=== PATIENT | female | born 1980 | race Caucasian/White ===

== ENCOUNTER 2016-07-06 14:23 | Observation (INO) | payer MEDICAID ==
[~2016-07-06] VITALS: Ht 180.3 cm; Wt 61.4 kg
[~2016-07-06 14:23] MED LIST: ABILIFY10 MG PO; CARAFATE1 G PO; GABAPENTIN100 MG PO; PROTONIX40 MG PO; SINEQUAN50 MG PO; TOPAMAX50 MG PO; ULTRAM50 MG PO
[2016-07-06 15:36] LABS: BASOPHILS 0.2 % (0.0-2.0); EOSINOPHILS 1.5 % (0-7); HEMATOCRIT 34.3 % (36.0-48.0); HEMOGLOBIN 10.8 g/dL (12-16); IMMATURE GRANULOCYTES 0.3 % (0-5); LYMPHOCYTES 15.9 % (15-50); MCH 27.3 pg (26.0-34.0); MCHC 31.5 g/dL (31.0-37.0); MCV 86.6 fL (80.0-100.0); MEAN PLATELET VOLUME 8.8 fL (7.4-10.4); MONOCYTES 5.2 % (2-11); NEUTROPHILS 76.9 % (40-80); RBC 3.96 10x6/uL (4.00-5.40); RDW 16.2 % (11.5-14.5); WBC 14.4 10x3/uL (4.8-10.8)
[2016-07-06 15:37] LABS: PLATELET COUNT 431 10x3/uL (130-400)
[2016-07-06 15:43] LABS: UDS - AMPHET NEGATIVE QUAL (NEGATIVE); UDS - BARB NEGATIVE QUAL (NEGATIVE); UDS - BENZO NEGATIVE QUAL (NEGATIVE); UDS - COCAINE NEGATIVE QUAL (NEGATIVE); UDS - METH NEGATIVE QUAL (NEGATIVE); UDS - OPIATE NEGATIVE QUAL (NEGATIVE); UDS - PCP NEGATIVE QUAL (NEGATIVE); UDS - THC NEGATIVE QUAL (NEGATIVE)
[2016-07-06 15:48] LABS: HCG URINE NEGATIVE (NEGATIVE)
[2016-07-06 15:49] LABS: APPEARANCE CLEAR (CLEAR); COLOR YELLOW (YELLOW)
[2016-07-06 15:50] LABS: BILIRUBIN NEGATIVE (NEGATIVE); GLUCOSE NEGATIVE (NEGATIVE); KETONE NEGATIVE (NEGATIVE); LEUKOCYTE ESTERASE NEGATIVE (NEGATIVE); NITRITE NEGATIVE (NEGATIVE); PROTEIN 1+ mg/dL (NEGATIVE); UROBILINOGEN NORMAL (NORMAL)
[2016-07-06 15:51] LABS: BACTERIA FEW /hpf (NONE SEEN); EPITHELIAL CELLS 0-5 /hpf (0-5); MUCUS <1+ /lpf (NONE SEEN); RED CELLS - URINE OCC /hpf (0-5); WHITE CELLS - URINE 0-5 /hpf (0-5)
[2016-07-06 16:19] LABS: ALBUMIN 3.4 g/dL (3.4-5.0); ALKALINE PHOSPHATASE 64 U/L (46-116); ALT (SGPT) 23 U/L (10-68); BILIRUBIN - TOTAL 0.17 mg/dL (0.2-1.3); CALC OSMOLALITY 276 mosm/kg (275-300); CALCIUM 8.8 mg/dL (8.5-10.1); CARBON DIOXIDE 27.2 mmol/L (21.0-32.0); CHLORIDE - SERUM 102 mmol/L (98-107); CREATININE - SERUM 0.7 mg/dL (0.6-1.3); GLUCOSE 99 mg/dL (74-106); MAGNESIUM - SERUM 1.7 mg/dL (1.8-2.4); POTASSIUM - SERUM 3.9 mmol/L (3.5-5.1); PROTEIN - SERUM 6.6 g/dL (6.4-8.2); SODIUM 139 mmol/L (136-145); UREA NITROGEN 11 mg/dL (7-18); eGFR NON AFRICAN AMERICAN > 90 mL/min (90-120)
[2016-07-06 20:50] VITALS: BP 135/93
[2016-07-06 23:00] VITALS: BP 101/62
[2016-07-06 23:38] VITALS: BP 135/93; Ht 180.3 cm; Wt 61.4 kg
--- NOTE | 2016-07-07 04:58 | NUR ---
ASSESSED AT THE TIME PT WAS BROUGHT FROM THE ER. SHE IS ALERT AND ORIENTED, ABLE TO VERBALIZE NEEDS. DR RAMÍREZ CAME TO SEE HER AND MEDS WERE STARTED AT TIEM TIME. SHE WAS COMPLAINING ABOUT ITCHING A LOT AFTER RECEIVING MEDS IN THE ER. OM CALL MD GAVE US AN ORDER FOR BENADRYL BEFORE DR RAMÍREZ SHOWED UP. SHE HAS BEEN ABLE TO SLEEP WELL AFTER THAT. HER BOYFRIEND HAS REMAINED AT THE BEDSIDE ALL NIGHT. THE BED IS LOW, RAILS UP X'S 2 WITH THE CALL LIGHT AT HAND.
[2016-07-07 05:00] VITALS: BP 100/61
--- NOTE | 2016-07-07 08:00 | NUR ---
PT ASSESSMENT COMPLETE AWAKE AND ALERT ORINETD X 3 LUNGS CLEAR BILATERALLY NO ACUTE DISTRESS NTOED HAS NO SEIZURE ACTIVITY NOTED EEG AT THIS TIME PER ORDER.
[2016-07-07 08:38] VITALS: BP 109/67
--- NOTE | 2016-07-07 11:04 | NUR ---
Patient Name: SOPHIA MANSFIELD Admission Status: ER Accout number: [id number] Admission Date: 07-06-2016 : 1980 Admission Diagnosis: Attending: MELANIE Current LOS: 1 Anticipated DC Date: 07-09-2016 Planned Disposition: Home Primary Insurance: [place]ICA[place] Discharge Planning Comments: CM MET WITH PATIENT REGARDING D/C NEEDS AND PLANS. PATIENT STATED SHE LIVES WITH HER BOYFRIEND AND THERE ARE 2 STEPS W/RAILS TO ENTER THEIR HOME AND NO STAIRS INSIDE. PATIENT STATED SHE IS INDEPENDENT WITH HER CARE AND HAS NO DME AT HOME. PATIENTS PCP IS DR. RAMÍREZ AND PHARMACY IS [facility] ON [address] PATIENT REFUSED HOME HEALTH. CM WILL CONTINUE TO FOLLOW PATIENT WITH D/C NEEDS AND PLANS. PCP DR. ENGLISH COOPER ON [phone] YOLIS SPAULDING ([facility] [place]) [phone] Tool Repair Technician: Paris Ortega Is the patient Alert and Oriented? Yes 0 * How many steps to enter\exit or inside your home? 2 W/RAILS 0 * PCP DR. RAMÍREZ 0 * Pharmacy [facility] [address] 0 * Preadmission Environment Home with Family 0 * ADLs Independent 0 * Equipment None 0 * List name and contact numbers for known caregivers / representatives who currently or will assist patient after discharge: YOLIS SPAULDING ([facility] [place]) [phone] 0 * Community resources currently utilized None 0 * Additional services required to return to the preadmission environment? Yes 0 * Can the patient safely return to the preadmission environment? Yes 0 * Has this patient been hospitalized within the prior 30 days at any hospital? No 0 Grand Total: 0
[2016-07-07 12:43] VITALS: BP 120/85
[2016-07-07 16:13] VITALS: BP 121/67
--- NOTE | 2016-07-07 16:32 | NUR ---
PT HAS REQUESTED PAIN MED ORDER PER DR MEJIA TO GIVE 1000 MG TYLENOL PO Q 6 HRS NEEDED FOR PAIN.
--- NOTE | 2016-07-07 16:41 | HP ---
PATIENT: ARIANNA MANSFIELD MEDICAL RECORD: [id number] ACCOUNT: [id number] LOCATION:D.MS [id number] : [birth year] ADMISSION DATE: 07/06/16 HISTORY AND PHYSICAL EXAMINATION REASON FOR ADMISSION: Generalized seizures. HISTORY OF PRESENT ILLNESS: The patient is a 35-year-old 0 female with history of depression, who also suffers from migraine headaches. Today, she took a tramadol for headache at about 10:00 a.m. At 1:30, she was going out the door to go on a walk with her mother and her mother notes she began to act "silly". She then fell on the couch and had a grand mal seizure, tonic-clonic type. Her mother placed her on the floor and attended her until the seizure stopped at about 2 or 3 minutes. She called 911. By time they arrived there, Arianna was postictal and coming around. She denied any other new medications, though several medications have potential for seizure, Ultram seems to be the most likely source. She has no previous history of severe head injury, seizure, or family history of seizures in the past. PAST MEDICAL HISTORY: Migraine headaches, bipolar disorder, history of peptic ulcer disease with prepyloric ulcer requiring transfusion due to anti-inflammatory use for fibromyalgia, chronic pain. PAST SURGICAL HISTORY: She had a hernia repair remotely, had a facial repair from a dog bite remotely, cystoscopy and retrograde pyelography in 2013 for hematuria due to NSAIDs. ALLERGIES: PENICILLIN. FAMILY HISTORY: Father with hypertension and hyperlipidemia. Mother with asthma. Grandmother with breast and colon cancer. 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 She is a college graduate. She has a current boyfriend, is a nonsmoker and rare wine drinker. HOME MEDICATIONS: Tramadol 50 mg 1-2 q.6 hours for headache, Topamax 200 mg at bedtime, Abilify 10 mg a day, Carafate 1 g p.o. p.c. and h.s., Protonix 40 mg b.i.d., doxepin 50 mg p.o. at bedtime, she takes control pills and Lyrica 75 b.i.d. She has been out of Lyrica recently. REVIEW OF SYSTEMS: GENERAL: Had felt well until today. Denies fever. HEENT: No recent visual change, sinus congestion, sore throat, or change in her headache cycle. RESPIRATORY: No severe cough. CARDIAC: No chest pain or claudication. GASTROINTESTINAL: No nausea, vomiting, change in stools, or blood per rectum. GENITOURINARY: No dysuria or hematuria. GYNECOLOGICAL: No abnormal vaginal bleeding, menstrual periods are regular. MUSCULOSKELETAL: She has pain in her left forearm and right hip from her seizure today; otherwise, has no recent change. MUSCULOSKELETAL: Symptoms of fibromyalgia trigger points. ENDOCRINE: Denies polyuria, polydipsia, heat or cold intolerance. NEUROLOGIC: No prior history of head injury, seizure or stroke, although has history of migraine headaches. HISTORY AND PHYSICAL [id number] ARIANNA MANSFIELD PSYCHIATRIC: She said her memory has been well controlled currently. She has been holding down a job and has a stable relationship with her boyfriend. PHYSICAL EXAMINATION: VITAL SIGNS: Temperature is 98.4 Fahrenheit, pulse is 120 initially, now 100, respirations are 16, blood pressure initially 176/100, now 150/80, and sat 99 on room air. GENERAL: The patient is alert and oriented with good recall except she does not remember the seizure or immediate postictal state. HEENT: Normocephalic. Eyes are clear. Pupils are reactive. Oropharynx unremarkable. Scar in the right upper lip is noted from previous injury. NECK: No bruits or masses. CHEST: Clear. HEART: Regular rate without MGR. ABDOMEN: Soft. No organomegaly. EXTREMITIES: No CC&E. She has some bruising over her left forearm and right hip. NEUROLOGIC: Oriented times 3. Cranial nerves intact. Gait is normal. Memory is intact except for the seizure and postictal period. No tremors noted. Reflexes are 2+ symmetrically. LABORATORY DATA: Denies current depressed mood. CT of the brain was unremarkable. She has a white count of 14,000 with left shift; H&H is 10.8 and 34.3 respectively. Urinalysis with few bacteria. Urine drug screen was negative. Chemistry is unremarkable except for low magnesium of 1.7. ASSESSMENT: 1. Tonic-clonic seizure, possibly due to Ultram. 2. Bipolar depression, clinically stable on multiple meds. 3. History of migraine headaches. 4. Hypomagnesemia. 5. Remote history of peptic ulcer disease. PLAN: We will discontinue Ultram. She was loaded with Dilantin IV tonight and she is now itching diffusely and most likely due to allergy. We will switch her Topamax from 200 mg at bedtime to 100 mg b.i.d. We will consult with Dr. Mas if available. EEG will be obtained. TRANSINT:[id number] Voice Confirmation ID: [id number] DOCUMENT ID: [id number] NICOLA RAMÍREZ MD at 1641 CC: [id number] DICTATION DATE: 07/06/162224 [employer]ATE[employer]NERSHIP REPRESENTATIVE: 07/06/16 3661 ADM IN [facility] [address] [place] [address]
--- NOTE | 2016-07-07 18:36 | NUR ---
WITHOUT DISTRESS.CALL LIGHT IN REACH.
[2016-07-07 21:18] VITALS: BP 117/79
[2016-07-07 23:00] VITALS: BP 111/76
[2016-07-08 05:40] LABS: BASOPHILS 0.6 % (0.0-2.0); EOSINOPHILS 6.1 % (0-7); HEMATOCRIT 35.2 % (36.0-48.0); HEMOGLOBIN 10.9 g/dL (12-16); IMMATURE GRANULOCYTES 0.3 % (0-5); LYMPHOCYTES 37.5 % (15-50); MCH 27.7 pg (26.0-34.0); MEAN PLATELET VOLUME 8.9 fL (7.4-10.4); MONOCYTES 9.5 % (2-11); RBC 3.94 10x6/uL (4.00-5.40); RDW 16.4 % (11.5-14.5)
[2016-07-08 05:46] LABS: MCV 89.3 fL (80.0-100.0); PLATELET COUNT 344 10x3/uL (130-400)
[2016-07-08 05:51] LABS: CALC OSMOLALITY 278 mosm/kg (275-300); CALCIUM 8.4 mg/dL (8.5-10.1); CARBON DIOXIDE 23.6 mmol/L (21.0-32.0); CHLORIDE - SERUM 107 mmol/L (98-107); CREATININE - SERUM 0.8 mg/dL (0.6-1.3); GLUCOSE 99 mg/dL (74-106); MAGNESIUM - SERUM 1.9 mg/dL (1.8-2.4); POTASSIUM - SERUM 4.1 mmol/L (3.5-5.1); SODIUM 139 mmol/L (136-145); UREA NITROGEN 14 mg/dL (7-18); eGFR NON AFRICAN AMERICAN 86 mL/min (90-120)
[2016-07-08] MEDS ORDERED: Topamax PO (06:57)
[2016-07-08] MEDS ORDERED: TOPAMAX100 MG PO (07:06)
--- NOTE | 2016-07-08 07:15 | NUR ---
PATIENT IN BED WITH EYES CLOSED RESTING QUIETLY AT THIS TIME. NO COMPLAINTS OR SIGNS OF DISTRESS. CALL LIGHT WITHIN REACH.
--- NOTE | 2016-07-08 08:00 | NUR ---
PT ASSESSMENT COMPLETE NO ACUTE DISTRESS NTOED VOICES ALL NEEDS OT STAFF CALL LIGHT INREACH SIDE RAILS UP X 2 PT TO DISCHARGE TODAY
[2016-07-08 08:44] VITALS: BP 115/71
--- NOTE | 2016-07-08 09:23 | NUR ---
CM REASSESSMENT NOTE: CM MET WITH PATIENT REGARDING D/C TODAY. PATIENT STATED HER DAD WILL BE DRIVING HER HOME. PATIENT DENIED HOME HEALTH OR ANY OTHER NEEDS.
--- NOTE | 2016-07-08 11:24 | NUR ---
PT DISCHARGED AT THIS TIME PIV DISCONTINUED ALL DISCHARGE INSTRUCTIONS GIVEN AND UNDERSTANDING STATED.
--- NOTE | 2016-07-17 07:17 | EEG ---
PATIENT:SOPHIA MANSFIELD DATE OF SERVICE: 07/06/16 MEDICAL RECORD: [id number] DATE OF : [birth year] LOCATION:D.223 D.MS ADMISSION DATE: 07/06/16 REFERRING PHYSICIAN: INTERPRETING PHYSICIAN: KORIN GIBBONS MD DATE OF SERVICE: 07/07/2016 Electroencephalographic Report Referred as an inpatient by Dr. Anderson. ELECTROENCEPHALOGRAM NUMBER: [id number] DATE OF EXAMINATION: 07/07/2016 at 8:30 a.m. DATE OF : 1980 TECHNICAL DATA: This electroencephalographic recording consists of approximately 20 minutes of data collection utilizing the international 10/20 system of electrode placement and both referential and non-referential montages. Sixteen channels of electrocerebral recording are accompanied by a 17th channel dedicated to the electrocardiographic rhythm and 2 channels of electromyographic recording. Recording is performed in the awake and drowsy states utilizing activation by photic stimulation. ELECTROENCEPHALOGRAPHIC DATA: The awake state comprises approximately 50% of the recorded electrocerebral activity. Electromyographic artifact is prominent and rapid eye movements are seen. The posterior dominant background consists of a well-developed, symmetric, rhythmic, waxing and waning alpha activity of 8-9 Hz, which is suppressed by eye opening. The drowsy state comprises the remaining portion of the recorded electrocerebral activity. Electromyographic artifact is diminished and rapid eye movements are not seen. The posterior dominant background is relatively suppressed. Also seen is an intermittent irregular generalized and symmetric 2-3 Hz delta slowing, which occurs for periods of 1-2 seconds approximately once every 1-2 pages. No abnormal nor focal slowing is identified. No epileptiform discharges are seen. Photic stimulation induces no abnormal change in the recorded electrocerebral activity. INTERPRETATION: Normal (awake and drowsy). This is a normal electroencephalographic recording. TRANSINT:[id number] Voice Confirmation ID: [id number] DOCUMENT ID: [id number] ELECTROENCEPHALOGRAM REPORT [id number] DONALSONDRASOPHIA KORIN GHOTRA MD at 0717 CC: [id number] DICTATION DATE: 07/07/16 1736 SHIP SURVEYOR: 07/08/16 0307 DIS IN 07/08/16 [id number] [place] [address]
== END 2016-07-08 11:25 | disposition home or self-care (01) ==
LOC: D.ER 14:23 → D.MS 17:30 → OBSVTIME 17:31 → D.MS 07-08 11:25
PROVIDERS: Family Medicine; Nurse Practitioner Acute Care; ADMIT Family Medicine
DX: G40.409 Other generalized epilepsy and epileptic syndromes, not intractable, without status epilepticus (principal); T40.4X5A Adverse effect of other synthetic narcotics, initial encounter; F31.9 Bipolar disorder, unspecified; E83.42 Hypomagnesemia; Z87.11 Personal history of peptic ulcer disease

== ENCOUNTER → 2016-07-14 13:46 | Outpatient (CLI) | payer MEDICAID ==
[2016-07-06 23:38] VITALS: BMI 18.8
[~2016-07-14 13:46] MED LIST changes: +TOPAMAX100 MG PO; +Topamax PO
== END | disposition home or self-care (01) ==
LOC: D.MRI 07-12 13:00
DX: R56.9 Unspecified convulsions (principal)

== ENCOUNTER → 2019-09-30 13:33 | Outpatient (CLI) | payer MEDICARE ==
[2016-07-06 23:38] VITALS: BMI 18.8
== END | disposition home or self-care (01) ==
LOC: D.CT 13:33
PROVIDERS: ATTEND Family Medicine
DX: G43.009 Migraine without aura, not intractable, without status migrainosus (principal); G40.409 Other generalized epilepsy and epileptic syndromes, not intractable, without status epilepticus

== ENCOUNTER 2020-01-21 16:48 | Emergency (ER) | payer MEDICARE ==
[~2020-01-21] VITALS: Ht 180.3 cm; Wt 69.9 kg
[2020-01-21 16:52] VITALS: Ht 180.3 cm; Wt 69.9 kg
[2020-01-21] MEDS ORDERED: ZOMIG5 MG (16:58)
[2020-01-21] MEDS ORDERED: PHENERGAN25 M1 (16:59)
[2020-01-21 21:00] VITALS: BP 110/67
== END 2020-01-21 21:00 | disposition home or self-care (01) ==
LOC: D.ER 16:48
DX: G43.909 Migraine, unspecified, not intractable, without status migrainosus (principal)

== ENCOUNTER 2020-10-04 21:28 | Emergency (ER) | payer MEDICARE ==
[~2020-10-04] VITALS: Ht 180.3 cm; Wt 68.2 kg
[~2020-10-04 21:28] MED LIST changes: +PHENERGAN25 M1; +ZOMIG5 MG
[2020-10-04 21:43] VITALS: BP 165/100; Ht 180.3 cm; Wt 68.2 kg
[2020-10-04] MEDS ORDERED: GABAPENTIN300 MG PO (21:46)
[2020-10-04] MEDS ORDERED: ZANAFLEX2 M1 PO (21:47)
[2020-10-04] MEDS ORDERED: REMERON30 MG PO (21:47)
[2020-10-04] MEDS ORDERED: SEROQUEL300 MG PO (21:47)
[2020-10-04] MEDS ORDERED: MIRALAX17 GM PO (21:48)
[2020-10-04] MEDS ORDERED: IMITREX6 MG/0.51 SQ (21:48)
[2020-10-04] MEDS ORDERED: ZOMIG5 MG PO (21:48)
[2020-10-04] MEDS ORDERED: BYSTOLIC20 MG PO (21:49)
[2020-10-04 22:25] LABS: BILIRUBIN NEGATIVE (NEGATIVE); KETONE NEGATIVE (NEGATIVE); NITRITE NEGATIVE (NEGATIVE); UROBILINOGEN NORMAL mg/dL (< 2)
[2020-10-04 22:26] LABS: HCG URINE NEGATIVE (NEGATIVE)
[2020-10-04 22:27] LABS: BASOPHILS 0.5 % (0-2); EOSINOPHILS 6.1 % (0-7); HEMATOCRIT 36.5 % (36.0-48.0); HEMOGLOBIN 11.5 g/dL (12-16); IMMATURE GRANULOCYTES 0.3 % (0-5); LYMPHOCYTE ABS# 3.71 10x3/uL (1.18-3.74); LYMPHOCYTES 38.1 % (15-50); MCH 28.7 pg (26.0-34.0); MCHC 31.5 g/dL (31.0-37.0); MEAN PLATELET VOLUME 8.9 fL (7.4-10.4); NEUTROPHIL ABS# 4.67 10x3/uL (1.56-6.13); RBC 4.01 10x6/uL (4.00-5.40); RDW 14.9 % (11.5-14.5); WBC 9.7 10x3/uL (4.8-10.8)
[2020-10-04 22:28] LABS: PLATELET COUNT 620 10x3/uL (130-400)
[2020-10-04 22:41] LABS: ANION GAP 12.5 mmol/L (8-16); CALCIUM 9.9 mg/dL (8.5-10.1); CARBON DIOXIDE 29.1 mmol/L (21.0-32.0); CREATININE - SERUM 0.9 mg/dL (0.6-1.3); POTASSIUM - SERUM 3.6 mmol/L (3.5-5.1); UDS - AMPHET NEGATIVE QUAL (NEGATIVE); UDS - BARB NEGATIVE QUAL (NEGATIVE); UDS - BENZO NEGATIVE QUAL (NEGATIVE); UDS - COCAINE NEGATIVE QUAL (NEGATIVE); UDS - OPIATE NEGATIVE QUAL (NEGATIVE); UDS - PCP NEGATIVE QUAL (NEGATIVE); UDS - THC POSITIVE QUAL (NEGATIVE)
[2020-10-04 22:55] LABS: ALBUMIN 4.2 g/dL (3.4-5.0); BILIRUBIN - TOTAL 0.23 mg/dL (0.2-1.3); PROTEIN - SERUM 8.1 g/dL (6.4-8.2); THYROID STIMULATING HORMONE 3.39 uIU/mL (0.36-3.74)
== END 2020-10-04 23:14 | disposition home or self-care (01) ==
LOC: D.ER 21:28
PROVIDERS: Student in an Organized Health Care Education/Training Program
DX: R41.3 Other amnesia (principal)